=== PATIENT | female | born 1995 | race Caucasian/White ===

== ENCOUNTER 2023-04-17 21:01 | Emergency (ER) | payer OTHER, SELFPAY ==
[2023-04-17] VITALS (11 sets, daily range): BP systolic 113–145; BP diastolic 67–92; PULSE 100–149; RESP 8–31; TEMP 36.1–36.8; O2SAT 97–100
--- NOTE | 2023-04-17 21:00 | RT.EKG_ITS ---
APPROVED REPORT Exam: Resting ECG Reason for Exam: SOB Patient Location: E HR:143 bpm ECG Measurements Heart Rate 143 AXIS WV 105 P 54 QRSd 88 QRS 19 QT 305 T [id number] QTc 471 Conclusion Sinus tachycardia...rate> 99 sinus tachycardia, normal axis, normal interals, non ischemic
[2023-04-17] MEDS: Dexamethasone 10 MG/ML VIAL PO (21:15)
[2023-04-17] MEDS: Albuterol/Ipratropium 3 ML UPD VIAL 9 ML UPD (21:15)
--- NOTE | 2023-04-17 21:17 | ED.GENADUL_ITS ---
Discharge Plan Disposition Patient Disposition: Home Condition: Improving Discharge Details Chief Complaint: RespSymp Clinical Impression: Asthma exacerbation ED Provider: Deon Waller Home Meds and New Rx's Prescriptions: No Action Saxenda 3 mg/0.5 mL (18 mg/3 mL) pen injector 3 mg subcut DAILY Rx Instructions: start week 5 of therapy albuterol 90 mcg/actuation aerosol 90 mcg inhalation Q4H PRN PRN sertraline 50 mg tablet 50 mg PO DAILY norethindrone-e.estradiol-iron [Junel FE 05/15 (28)] 1 mg-20 mcg (21)/75 mg (7) tablet 1 tab PO DAILY Discharge Instructions Instructions: Asthma (ED) Medical Decision Making 27-year-old female history of asthma presents with cough nonproductive, wheeze and shortness of breath, has used her albuterol multiple times today, speaking full sentences however definitive expiratory wheeze bilaterally on examination, no hypoxia no tachypnea, no chest pain no fevers no chills, no peripheral edema. No history of thromboembolic disease or coronary disease. Likely asthma exacerbation in the setting of viral illness versus environmental stimuli. Trial of albuterol ipratropium, dexamethasone close reassessment. If no improvement of respiratory symptoms consider placing IV administering magnesium, obtaining chest x-ray and viral panel. 23:11 patient feeling much improved after meds; persistent tachycardia, sinus tach on monitor and ekg, likely resultant from beta agonist use throughout the day HPI General Date/Time Provider Initiated Documentation: 04/17/23 21:06 . HPI Narrative: 27-year-old female history of asthma presents with wheezing today, cough nonproductive. Has used albuterol multiple times at home before arrival. Denies history of thromboembolic disease or coronary artery disease. No chest pain no fevers no chills Related Data Home Medications Medication Instructions Recorded Confirmed albuterol 90 mcg/actuation aerosol 90 mcg inhalation Q4H PRN PRN 04/17/23 04/17/23 inhaler liraglutide (weight loss) 3 mg/0.5 3 mg subcut DAILY 04/17/23 04/17/23 mL (18 mg/3 mL) subcut pen injector (Saxenda) norethindrone 1 mg-ethinyl 1 tab PO DAILY 04/17/23 04/17/23 estradiol 20 mcg (21)-iron 75 mg (7) tablet (05/15 (28)) sertraline 50 mg tablet 50 mg PO DAILY 04/17/23 04/17/23 Allergies Allergy/AdvReac Type Severity Reaction Status Date / Time cat dander Allergy Intermediate Wheezing Unverified 04/17/23 22:05 dog dander Allergy Mild Wheezing Unverified 04/17/23 22:05 General Stated Complaint: RespSymp DELORES: 3 Review of Systems Narrative: Review of Systems Constitutional: negative Eyes: negative ENT: negative Cardiovascular: negative Respiratory: Cough shortness of breath wheeze Gastrointestinal: negative : negative Musculoskeletal: negative Skin: negative Neurologic: negative Psych: negative PFSH All Active Problems (Updated 04/17/23 @ 23:12 by Deon Waller MD) Asthma exacerbation (Acute) Social History Smoking risk assessment performed?: No Exam Narrative Exam Narrative: Physical Examination General: alert, awake, cooperative, resting comfortably, no acute distress HEENT: normocephalic, atraumatic; PERRL, EOM intact, conjunctiva normal; no nasal discharge; moist mucous membranes, oral and pharyngeal mucosa normal, tolerating secretions Neck: supple, trachea midline; full ROM Chest: normal to inspection Respiratory: Normal respiratory effort, expiratory wheeze bilaterally, speaking in full sentences Cardiac: Tachycardia, regular rhythm, S1S2 intact, no murmurs rubs or gallops GI: abdomen soft, non-tender, non-distended; no palpable mass or hepatosplenomegaly Skin: no lesions, rashes or trauma appreciated Neuro: AAOx3, normal speech, moving all extremities Extremities: No peripheral edema Psych: Appropriate mood and affect Course Vital Signs Vital signs: Vital Signs Temperature 36.8 C 04/17/23 21:05 Pulse 128 H 04/17/23 21:05 Respiratory Rate 24 04/17/23 21:05 Blood Pressure 142/92 H 04/17/23 21:05 Pulse Oximetry 98 04/17/23 21:05 Temperature 36.8 C 04/17/23 21:10 Temperature Source Oral 04/17/23 21:10 Pulse 128 H 04/17/23 21:10 Respiratory Rate 24 04/17/23 21:10 Respiratory Effort Short of Breath 04/17/23 21:10 Respiratory Depth Normal 04/17/23 21:08 Blood Pressure 142/92 H 04/17/23 21:10 Blood Pressure Position Sitting 04/17/23 21:05 Pulse Oximetry 98 04/17/23 21:10 Oxygen Delivery Method Room Air 04/17/23 21:05 Oxygen Flow Rate 0 04/17/23 21:05 Pain Level 0 04/17/23 21:05
--- NOTE | 2023-04-21 07:28 | NUR.NOTE ---
Accessed chart to determine orders for EKG and to determine whether or not one needs to be cancelled. Nursing Note:
== END 2023-04-17 23:33 | disposition home or self-care (01) ==
LOC: ER 23:27
PROVIDERS: Emergency Provider Emergency Medicine
DX: J45.901 Unspecified asthma with (acute) exacerbation (principal)
CPT/HCPCS: 93005; 99284; 93010; J1100; J7620